=== PATIENT | female | born 1995 | race Asian ===

== ENCOUNTER 2018-05-28 03:10 | Emergency (ER) | payer OTHER ==
[~2018-05-28] VITALS: Ht 167.6 cm; Wt 61.2 kg
[2018-05-28 03:10] VITALS: BP 98/64
--- NOTE | 2018-05-28 03:16 | NUR ---
PT BIBA to bed 09.
--- NOTE | 2018-05-28 03:20 | NUR ---
22 y/o F biba under the influence of alcohol. VSS. AAO x 1, to person only. GCS of 8. Unable to answer any questions. Sleep but arousable to name. Unable to stay awake. Per Pt friend she consumed alcohol and marijuana. Vomit noted to Pt shoes. notified. Siderails x2 up for safety. Friend at bedside. Will continue to monitor.
--- NOTE | 2018-05-28 04:25 | NUR ---
Asleep but arousable to name and pain. Still unable to hold conversation at this time. VSS.
--- NOTE | 2018-05-28 05:31 | NUR ---
VSS. Able to arouse Pt and change into gown. Able to respond commands and assist in repositioning.
--- NOTE | 2018-05-28 06:17 | NUR ---
Dr. Gonzalez evaluating patient at bedside.
[2018-05-28 06:25] VITALS: BP 105/70
--- NOTE | 2018-05-28 06:25 | NUR ---
Patient discharged with v/s stable. Written and verbal after care instructions given and explained. Patient verbalized understanding. Ambulatory with steady gait. All questions addressed prior to discharge. Advised to follow up with PMD.
== END 2018-05-28 06:25 | disposition home or self-care (01) ==
LOC: MED 03:10
DX: F10.129 Alcohol abuse with intoxication, unspecified (principal); F12.129 Cannabis abuse with intoxication, unspecified
CPT/HCPCS: 99283